=== PATIENT | male | born 2000 | race Two or more races ===

== ENCOUNTER 2025-03-01 14:00 | Emergency (ER) | payer MEDICAID, SELFPAY ==
[2025-03-01 14:16] VITALS: BP 134/85; PULSE 66; RESP 16; TEMP 36.6; O2SAT 100
--- NOTE | 2025-03-01 14:23 | XR_ITS ---
Examination: Hand, right 2 views Examination: Right hand AP lateral 2 views Date and time: March 01, 2025 1425 hrs. Indications: Injury to the hand today, hand pain Findings: Adequate bone density No acute fracture No dislocation Impression: No acute fracture
--- NOTE | 2025-03-01 15:22 | PD.EDHAND ---
Upper Extremity Injury RME/HPI General Chief Complaint: Hand/Wrist Problems Stated Complaint: INJURY TO 3 FINGERS ON RIGHT HAND Time Seen by Provider: 03/01/25 14:17 Arrival date/time: 03/01/25 14:00 This is a case of 25-year-old male who came into the emergency room due to pain on the fifth fourth third finger right hand patient states that he is working on his car when his finger caught by the brake sustaining pain and swelling no open wound noted Limitations: no limitations RME / HPI RME / HPI narrative: Pulse Related Data Previous Rx's ?Medication ?Instructions ?Recorded ibuprofen 800 mg tablet 800 mg PO Q8H PRN pain #20 tabs 03/01/25 Allergies Allergy/AdvReac Type Severity Reaction Status Date / Time NKA* Allergy Uncoded 03/01/25 14:02 Review of Systems Review of Systems Systems Reviewed: All systems reviewed, normal except as documented Constitutional Constitutional: Reports system reviewed and no additional complaints, except as documented and Reports as per HPI ENT Ears, Nose, Mouth, and Throat: Denies neck pain Cardiovascular Cardiovascular: Reports system reviewed and no additional complaints, except as documented and Reports as per HPI Gastrointestinal Gastrointestinal: Reports system reviewed and no additional complaints, except as documented and Reports as per HPI Musculoskeletal Musculoskeletal: Reports system reviewed and no additional complaints, except as documented, Reports as per HPI, Denies abnormal gait, Denies arthralgias, Denies atrophy, Denies back pain, Denies deformity, Denies joint swelling, Denies limited range of motion, Denies loss of height, Denies muscle cramps, Denies muscle weakness, Denies myalgias, Denies neck pain, Denies numbness, Denies radiating pain into limb, Denies stiffness and Denies tingling Neurologic Neurologic: Reports system reviewed and no additional complaints, except as documented, Reports as per HPI, Denies abnormal gait, Denies numbness and Denies tingling Past Medical History Social History SMOKING STATUS: Never smoker ED Exam General Limitations: Present no limitations General appearance: Present alert and in no apparent distress Head Head exam: Present atraumatic, normocephalic and normal inspection Eye Eye exam: Present normal appearance, PERRL and EOMI ENT ENT exam: Present normal exam, normal oropharynx and mucous membranes moist Neck Neck exam: Present normal inspection, full ROM and trachea midline; Absent tenderness, meningismus, lymphadenopathy or thyromegaly Chest Chest inspection: Present normal inspection and symmetric chest wall rise Respiratory Respiratory exam: Present normal lung sounds bilaterally; Absent respiratory distress, wheezes, stridor, accessory muscle use or prolonged expiratory phase Cardiovascular Cardiovascular exam: Present regular rate, normal rhythm and normal heart sounds Abdominal Exam Abdominal exam: Present soft and normal bowel sounds Extremities Exam Extremities exam: Present normal inspection and full ROM Expanded Upper Extremity Exam Hand exam: Present normal inspection, full ROM and other (Mild tenderness on the third fourth fifth finger right hand with mild swelling no open wound nail were intact motor sensory pulses were full and equal capillary refill less than 2 seconds ROM intact); Absent tenderness, swelling, abrasion, laceration, skin avulsion, ecchymosis, deformity, crepitus, dislocation, erythema, amputation, nail avulsion or subungual hematoma Back Exam Back exam: Present normal inspection and full ROM Neurological Exam Neurological exam: Present alert, oriented X3, CN II-XII intact and normal gait; Absent motor sensory deficit or reflexes normal Psychiatric Psychiatric exam: Present normal affect and normal mood Skin Skin exam: Present warm, dry, intact and normal color Course Quality Measures none Orders Category Date Time Status XR hand RT 2V Stat Exams 03/01/25 14:23 Taken Vital Signs Vital signs: Vital Signs Temperature 97.9 F 03/01/25 14:16 Pulse Rate 66 03/01/25 14:16 Respiratory Rate 16 03/01/25 14:16 Blood Pressure 134/85 H 03/01/25 14:16 Pulse Oximetry (%) 100 03/01/25 14:16 Oxygen Delivery Method Room Air 03/01/25 14:16 Oxygen saturation is 100% in room air Extremity Injury MDM Narrative MDM Narrative:: 03/01/25 14:00 This is a case of 25-year-old male who came into the emergency room due to pain on the fifth fourth third finger right hand patient states that he is working on his car when his finger caught by the brake sustaining pain and swelling no open wound noted physical examination patient is awake alert oriented not in distress nontoxic looking noted mild to moderate tenderness on the fourth digit right hand with mild swelling patient also noted to have mild tenderness on the 5th and 3rd finger but no swelling no crepitation no deformity ROM intact neurovascular intact x-ray showed no fracture no dislocation splint applied on the fourth digit right hand RICE treatment will continue by the patient at home ibuprofen was prescribed Patient was discharged with comfortable condition walking with stable gait. Patient verbalized no further complains explained diagnosis and answered patient question. Patient is comfortable with the proposed management plan including the need to follow up with his/her primary care physician and any specialist if applicable Discussed patient for any urgent condition or worsening sx, He/She needed to go to emergency room immediately or call 911. Patient acknowledge the responsibility to follow up as instructed and to monitor her/his symptoms. For any persistence of the symptoms for more than 3-5 days return precaution advised. Discussed the result of the test and was given printed discharge instruction Patient data External records reviewed:: [facility] previous records Clinical information provided by:: patient Social determinants that could affect healthcare access:: none Patient has the following chronic illnesses:: None How is presenting disease/condition affected by chronic disease/condition?: no chronic disease Evaluation data The following diagnostics were reviewed and interpreted by me:: radiology exam(s) Lab and/or radiology exams considered but not ordered:: Reviewed Interpretation Summary: Reviewed Medications / Prescriptions Medications or Prescriptions considered but not ordered:: Given Medication administrations:: Given Consultations Consultation(s) initiated? (list below): No Diagnosis Upper Extremity Injury Differential Diagnosis: finger sprain Most likely diagnosis given after review of the tests above:: Finger sprain Admission Indicated Admission indicated?: not indicated Explain why admission is indicated or not indicated:: Not indicated Admission Request Was there a request for admission?: No Admission Attestation Admission request attestation: Not indicated Disposition Plan Disposition Plan: Discharge Discharge Attestation Discharge Attestation: The patient and all family members were given an opportunity to ask questions and understood the discharge instructions. Discharge instructions specifically effects, indications for sooner follow up or return to the emergency department, and the expected course of current diagnosis. Patient condition: Stable Discharge Plan Plan Patient Disposition: HOME (Self Care) Patient condition on transfer: Stable Prescriptions/Referrals Prescriptions/Med Rec: New ibuprofen 800 mg tablet 800 mg PO Q8H PRN (Reason: pain) Qty: 20 0RF Referrals: No Primary/Family,Physician [Primary Care Provider] - In 1 week Problem List Clinical Impression: Finger sprain Patient/Caregiver Discharge Instructions Education Materials: Self-Care for Strains and Sprains, ED Finger Sprain, ED RICE Additional Instructions: Follow-up with your primary care physician in 2 days for reevaluation for any worsening symptoms or any emergent concern return to the emergency room immediately or call 911 ice pack every 2 hours for 20 minutes for 24 hours then alternate with warm compress keep the finger splint in place until cleared by your primary care physician Print Language: Maltese Stand Alone Forms: [employer]oda Award Info., Patient Portal Info Letter PA/CLINICAL PSYCHOLOGIST LICENSED Supervising Physician PA/CLINICAL PSYCHOLOGIST LICENSED Supervising Physician: DR ROSALES
== END 2025-03-01 15:54 | disposition home or self-care (01) ==
PROVIDERS: Emergency Provider Family Medicine
DX: S63.616A Unspecified sprain of right little finger, initial encounter (principal); S63.614A Unspecified sprain of right ring finger, initial encounter; S63.612A Unspecified sprain of right middle finger, initial encounter; X58.XXXA Exposure to other specified factors, initial encounter
CPT/HCPCS: 73120; 99283